=== PATIENT | male | born 1940 | race Caucasian/White ===

== ENCOUNTER 2022-11-15 14:00 | Observation (INO) | payer MEDICARE, MEDICAID, SELFPAY ==
[2022-11-06 14:38] VITALS: BMI 24.1
[2022-11-14] VITALS (9 sets, daily range): BP systolic 132–192; BP diastolic 60–96; PULSE 57–85; RESP 14–18; TEMP 36.1–36.6; O2SAT 91–98; BMI 24.1
--- NOTE | 2022-11-14 06:00 | DI.RAD.S_ITS ---
PROCEDURE: XR KNEE RT 1TO2V INDICATIONS: prosthesis placement TECHNIQUE: 2 view(s) of the knee acquired. COMPARISON: None. FINDINGS: Bones: Patient is status post knee joint arthroplasty. Hardware components are in expected positions. Visualized bony structures are intact. Soft tissues: Overlying postoperative changes are noted. IMPRESSION: Right total knee prosthesis in good position Approved by: Andrade Dubose M.D. on 11/14/2022 at 13:06
[2022-11-14] MEDS: LACTATED RINGERS 1,000 ML 42 ML IV ×2 (09:28→12:28)
[2022-11-14] MEDS: CELECOXIB 200 MG CAPSULE PO (09:29)
[2022-11-14] MEDS: ACETAMINOPHEN 325 MG TABLET 975 MG PO (09:29)
[2022-11-14] MEDS: PREGABALIN 75 MG CAPSULE PO (09:29)
[2022-11-14 09:35] LABS: COVID19 -Nasal RAPID Negative (Negative)
--- NOTE | 2022-11-14 10:17 | PM.PREOP ---
Pre-operative Note Interval Note History & Physical reviewed/Exam performed by Physician: Yes Changes to H&P: No
[2022-11-14] MEDS: CEFAZOLIN 2 GM/100 ML PREMIX 100 ML IV ×2 (10:48→18:22)
--- NOTE | 2022-11-14 11:24 | SUR.OPER ---
Supine on padded OR bed. Pillow under head, arms secured on padded armboards <90 degree abduction. Safety belt across torso. Non-operative leg secured with tape over blanket over lower leg. Operative leg secured in [employer] positioner.
[2022-11-14] MEDS: BUPIVACAINE LIPOSOME 266 MG/20 ML VIAL INJ (11:34)
[2022-11-14] MEDS: MORPHINE 4 MG/ML INJ INJ (11:35)
[2022-11-14] MEDS: TRANEXAMIC ACID 1,000 MG VIAL 1000 MG INJ ×2 (11:36→12:07)
[2022-11-14] MEDS: BUPIVACAINE 0.25% (PF) 60 ML, EPINEPHrine 0.3 MG INJ (11:40)
--- NOTE | 2022-11-14 12:18 | SUR.OPER ---
Patient left hearing aid remained in place to left ear. Upper and Lower dentures removed in OR and placed into green denture cup with patient label. And patients glasses placed into black glass case with patient label and brought with patient from OR to PACU.
--- NOTE | 2022-11-14 12:32 | P.OP_ITS ---
Operative Date/Time/Diagnoses Date of procedure: 11/14/22 Time of procedure: 12:32 Pre-op diagnosis: Right knee osteoarthritis Post-op diagnosis: same Procedure & Clinicians Procedure: Right total knee replacement Same procedure as scheduled: Yes Indications: The patient has had progressively worsening right knee pain with radiographic changes consistent with arthritis. Non-operative management has failed and the patient has requested total knee replacement. The risks, benefits and alternatives to surgery were discussed with the patient prior to proceeding. Risks discussed included, but were not limited to, failure to relieve pain, stiffness, infection, nerve damage, deep venous thrombosis, pulmonary embolism, stroke, coma, heart attack, permanent paralysis and , as well as the potential need for eventual revision of the prosthetic. Surgeon: Lyle Ayers Data Quality Consultant: Yogi Barkley Click Yes if Unassisted: No Anesthesia Type: Spinal, Sedation and Local Operative Notes Findings: Severe osteoarthritis of the medial compartment with moderate patellofemoral changes. Closure Type: primary Specimen(s): none sent Prosthetic devices, grafts, tissues, transplants, or devices: Implants used in this procedure were manufactured by the [employer] and included the BCS II Journey total knee replacement with a size 8 right cobalt chromium femur, 8 right non porous tibial base plate, 38 mm oval Estefanía II patella, and a 9 mm cross-linked polyethylene tibial insert. Applied: implant(s) Estimated Blood Loss (mL): 50 Blood products transfused: none Tourniquet time (min): 53 Procedure in detail: The patient was seen in the pre-operative area, where the patient identified the right knee as the operative site and this was marked with my initials. The patient received pre-operative antibiotics, and was taken to the operating room and placed on the operative table in the supine position. After satisfactory anesthesia, a time checker out was performed. The right leg was encircled with a tourniquet about the proximal thigh, and the leg was prepared from the toes to the tourniquet with ChloroPrep in the usual fashion and draped through sterile drapes. The leg was elevated and exsanguinated with Eschmark bandage and the tourniquet inflated to 250 mmHg pressure. The knee was approached through an approximately 18 cm incision centered over the patella and carried into the knee through a medial parapatellar arthrotomy. The anterior osteophytes and soft tissues were removed. The rotational landmarks of Jefferson's line and the transepicondylar axis were marked on the femur with electrocautery, and intramedullary guide holes for the femur and tibia were created. The distal femoral cut was made in 6 degrees of valgus using the intramedullary guide at the primary cut setting. The proximal tibial cut was then made using the intramedullary guide, taking 9 mm of bone off the less involved side. The extension gap was checked and the rotation of the femoral component confirmed with the gap balancing system. The anterior, posterior and chamfer cuts were then made. The posterior osteophytes and soft tissues were then removed. The posterior capsule was injected with part of a mixture of 60 ml 0.25% Marcaine mixed with 20 ml Exparel and 4 mg of morphine for post-operative pain control. The remainder of this mixture was injected into the capsule and subcutaneous tissues during cement curing. The tibia was prepared with the rotation set by an extra medullary guide. Trial tibial and femoral components were then placed and the intercondylar notch cut through the femoral trial. Range of motion was 0-140 degrees, with good stability throughout the range. The patella was then cut to accommodate the patellar prosthetic. There was no need for a lateral release. The trials were then removed, and the femoral hole plugged with a bone plug. The bone was prepared with pulsatile lavage, and dried with a sponge. Cement was applied and the final prosthetics placed. Excess cement was removed during and after cement curing. After confirming there was no extruded cement posteriorly, the final tibial insert was placed. The knee was copiously irrigated and the tourniquet deflated. Hemostasis was obtained. The capsule was closed with interrupted # 2 polyester suture. The subcutaneous layer was closed with 3-0 Vicryl, and the skin with a running 3-0 V-Lock suture and Dermabond. An Aquacel Ag dressing was applied and the patient was taken to recovery having tolerated the procedure well. The services of a skilled surgical attendant were required during this case to provide positioning, exposure and retraction to protect vital structures. Without the help of Mr. Barkley, the procedure could not have gone forward in a safe, expedient fashion. Complications: none Post-operative Condition: stable Disposition: PACU Plan for aftercare: The patient will be maintained on a standard total knee replacement protocol with weight bearing as tolerated. The patient will receive aspirin and sequential compression devices for DVT prophylaxis. The patient will be discharged home when safe for the home environment.
[2022-11-14] MEDS: OXYCODONE IR 5 MG TABLET PO (12:57)
[2022-11-14] MEDS: IBUPROFEN 400 MG TABLET PO ×3 (14:01→21:11)
[2022-11-14] MEDS: ACETAMINOPHEN 325 MG TABLET 650 MG PO ×2 (14:02→18:22)
--- NOTE | 2022-11-14 14:39 | PC.NURSE ---
Pt to room 206 via bed from PACU at 1330. Pt oriented to room, call light, bed controls, and tv controls. SCD's on and running. Bed alarm on for safety. Pt agrees to call for assistance as needed.
--- NOTE | 2022-11-14 16:00 | PT.IIE ---
Current Diagnoses Unilateral primary osteoarthritis, right knee (11/14/22) Surgery Performed Operation Date: 11/14/22 11:00 Actual Procedures p Total Knee Arthroplasty(Right) - Lyle Ayers MD Surgical History (Last Updated 02/15/22 @ 14:00 by Violeta Caballero, RN) History of prostate surgery History of stapedectomy History of surgery Hx of LASIK S/P CABG x 4 (~2011) S/P epidural steroid injection Medical History (Last Updated 02/15/22 @ 14:14 by Violeta Caballero RN) Anxiety Barretts esophagus BCC (basal cell carcinoma) (~2001) Diverticulitis Hearing impaired HLD (hyperlipidemia) HTN (hypertension) Kidney stones Neuropathy Osteoarthritis RLS (restless legs syndrome) Spinal stenosis Physical Therapy Inpatient Evaluation/Re-Eval M1 PT/OT-IP Prior Functional Status Start: 11/14/22 16:54 Freq: NEEDED Status: Active Protocol: Document 11/14/22 15:32 DCW (Rec: 11/14/22 17:24 DCW [id number]) Medical Review Prior Functional Status Communication WNL Mobility and Gait WNL, does not use assistive device at baseline Social History Household Members family,children Living Arrangements House Number of Stairs To Enter/Railing? 6, R ascending rail Additional Social History Comment Lives in a two-story home, but only uses first floor. M2 PT-IP Current Condition Start: 11/14/22 16:54 Freq: NEEDED Status: Active Protocol: Document 11/14/22 15:32 DCW (Rec: 11/14/22 17:24 DCW [id number]) Physical Therapy Current Condition Current Condition Evaluation Date 11/14/22 Treatment Diagnosis R TKA Onset Date 11/14/22 M3 PT-IP Subjective Start: 11/14/22 16:54 Freq: NEEDED Status: Active Protocol: Document 11/14/22 15:32 DCW (Rec: 11/14/22 17:24 DCW [id number]) Subjective Physical Therapy Visit Type Type Initial Evaluation Visit Start Time 15:32 Visit Stop Time 16:00 Total Visit Minutes 28 Notes Pt lying in bed when therapist entered room. Noted some pain , about a 5/10, but overall notes he is feeling pretty well. Agreeable to get up with PT at this time. Number of COST AND RISK ANALYSIS MANAGER Visits 0 Physical Therapy Visit Comments Patient Comments I'm already set up with PT somewhere [place] when I get out of here. Therapy Pain Assessment Location Right Knee Intensity 5 Scale Used Numeric (0 - 10) Description Aching M4 PT-IP Mobility and Gait Start: 11/14/22 16:54 Freq: NEEDED Status: Active Protocol: Document 11/14/22 15:32 DCW (Rec: 11/14/22 17:24 DCW [id number]) PT-Bed Mobility Assessment Supine to Sit Supine to Sit Independent Sit to Supine Sit to Supine Independent Scooting Scooting to Edge of Bed Independent Scooting Up and Down in Bed Independent PT-Transfer Assessment Sit to and From Stand Sit to and from Stand Standby Assistance Equipment Transfer Assistive Device Bed Rail,Gait Belt,Front Wheeled Walker Orthotic/Prosthetic Devices or Brace: No Comments Mobility Comments Pt able to perform bed mobility independently, SBA for sit<->stand from EOB, did well with use of tall FWW. Gait Assessment Gait Gait Assistance Required: Standby Assistance Distance (Feet) 450 Able to Maintain Weight Bearing Status Yes During Gait Assistive Devices Assistive Device Gait Belt,Front Wheeled Walker Orthotic/Prosthetic Devices or Brace: No Gait Deviations General Gait Pattern Antalgic,Decreased Stride Length,Flexed Trunk Factors Limiting Gait Function Factors Limiting Gait Function Decreased Activity Tolerance, Decreased Sensation,Pain Comments Gait Comments Pt ambulates with slight forward flexion, decreased step length with a moderate antalgic gait. Able to complete two full laps around nurses station for 450'. Stair Climbing Assessment Evaluation Level of Assist On Stairs Standby Assistance Devices Stair Climbing Assistive Devices Left Railing,Right Railing Technique/Endurance Stair Climbing Direction Ascend and Descend Stair Climbing Technique Step to Step Number of Steps Climbed 3 Query Text: Comments Stair Climbing Comments Pt ascended and descended three steps step-to gait pattern using bilateral railing SBA, therapist assist for IV line management. PT-Balance Assessment Sitting Balance and Reactions Static Sitting Balance Ability Normal Dynamic Sitting Balance Ability Normal Standing Balance and Reactions Static Standing Balance Ability Good Dynamic Standing Balance Ability Fair Device Used FWW M5 PT-IP Objective Assessments Start: 11/14/22 16:54 Freq: NEEDED Status: Active Protocol: Document 11/14/22 15:32 DCW (Rec: 11/14/22 17:24 DCW [id number]) Orientation Orientation/Cognition Level of Alertness Alert Orientation Name,Birthday,Month,Date,Year, Place,Situation Language Function Ability No Deficits Noted Safety Awareness Understands Safety Issues Memory Description No Deficits Noted Gross Range of Motion Lower Extremity ROM Assessment Right Impaired Impairments 7?-95? Strength Comments Strength Comments Able to lift leg against gravity to perform functional movements, good quad contraction M6 PT-IP Treatment Start: 11/14/22 16:54 Freq: NEEDED Status: Active Protocol: Document 11/14/22 15:32 DCW (Rec: 11/14/22 17:24 DCW [id number]) Physical Therapy Treatment Exercises Exercises Ankle Pumps,Quad Sets,Heel Slides,Straight Leg Raises Education Education Provided Weight Bearing Status,Post-Op Packet,Safety M7 PT-IP Assessment and Plan Start: 11/14/22 16:54 Freq: NEEDED Status: Active Protocol: Document 11/14/22 15:32 DCW (Rec: 11/14/22 17:24 DCW [id number]) PT Summary Assessment and Plan Potential Rehabilitation Potential Excellent Status of Condition at Evaluation Stable Summary Impairments Pain,ROM,Strength,Activity Tolerance Assessment Summary Pt doing incredibly well on [id number]. Pt able to perform independent bed mobility, all transfers SBA, no complaints of dizziness or imbalance. Noted some slight increase in soreness when first standing, but after starting walking, felt much better, and ended up ambulating throughout all 450' . Additionally able to demonstrate ability to ascend/ descend three stairs using bilateral railing. Performed post-op HEP, was able to demonstrate back afterward, pt was left with an HEP handout and post-op packet. Pt has shared living space with his son, good support at home. Pt will likely be safe to discharge home when medically cleared, may want to retest on stairs, specifically with only using a right ascending rail, which is what pt has at home to enter.. Goals Gait Goal Independent Gait Distance 600 Other Goals Ascending/descend 6 stairs with right ascending railing Days to Meet Goals 2 Frequency of Treatment Frequency Of Treatment Twice a Day Treatment Plan Physical Therapy Treatment Plan Gait Training,Therapeutic Exercise,Post Op Education, Discharge Planning Other Recommendations and Next Treatment Retry stairs with unilateral Focus railing, review HEP Weight Bearing Status Weight Bearing Status Weight Bear as Tolerated Recommendations To Nursing Amount of Assist Needed Standby Assistance Discharge Recommendations PT Discharge Recommendations Home,Outpatient PT Transportation Needs at Discharge Private Vehicle
[2022-11-14] MEDS: polyethylene glycoL 3350 17 GM POWD.PACK PO (18:28)
[2022-11-14] MEDS: DOCUSATE 100 MG CAPSULE PO (21:11)
[2022-11-14] MEDS: OXYCODONE IR 10 MG TABLET PO (21:11)
[2022-11-14] MEDS: ASPIRIN EC 81 MG TABLET PO (21:11)
[2022-11-14] MEDS: GABAPENTIN 600 MG TABLET PO (21:11)
[2022-11-15 02:12] VITALS: BP 129/70; PULSE 73; RESP 18; TEMP 36.6; O2SAT 94
[2022-11-15] MEDS: ACETAMINOPHEN 325 MG TABLET 650 MG PO ×3 (02:28→17:27)
[2022-11-15] MEDS: IBUPROFEN 400 MG TABLET PO ×5 (02:29→21:10)
[2022-11-15] MEDS: CEFAZOLIN 2 GM/100 ML PREMIX 100 ML IV (02:32)
[2022-11-15 06:13] LABS: Hematocrit 32.2 % (41-53); Hemoglobin 11.1 g/dL (13.5-17.5)
--- NOTE | 2022-11-15 06:42 | PM.DS.1 ---
History of Present Illness History of Present Illness Date Patient Seen: 11/15/22 Time Patient Seen: 06:43 Chief complaint: OPB Narrative: Operative Date/Time/Diagnoses Date of procedure: 11/14/22 Time of procedure: 12:32 Pre-op diagnosis: Right knee osteoarthritis Post-op diagnosis: same Procedure & Clinicians Procedure: Right total knee replacement Same procedure as scheduled: Yes Indications: The patient has had progressively worsening right knee pain with radiographic changes consistent with arthritis. Non-operative management has failed and the patient has requested total knee replacement. The risks, benefits and alternatives to surgery were discussed with the patient prior to proceeding. Risks discussed included, but were not limited to, failure to relieve pain, stiffness, infection, nerve damage, deep venous thrombosis, pulmonary embolism, stroke, coma, heart attack, permanent paralysis and , as well as the potential need for eventual revision of the prosthetic. Surgeon: Lyle Ayers Supervisor Print Line: Yogi Barkley Click Yes if Unassisted: No Anesthesia Type: Spinal, Sedation and Local Operative Notes Findings: Severe osteoarthritis of the medial compartment with moderate patellofemoral changes. Closure Type: primary Specimen(s): none sent Prosthetic devices, grafts, tissues, transplants, or devices: Implants used in this procedure were manufactured by the [employer] and included the BCS II Journey total knee replacement with a size 8 right cobalt chromium femur, 8 right non porous tibial base plate, 38 mm oval Estefanía II patella, and a 9 mm cross-linked polyethylene tibial insert. Applied: implant(s) Estimated Blood Loss (mL): 50 Blood products transfused: none Tourniquet time (min): 53 Discharge Providers Provider Discharge Date: 11/15/22 Primary care physician: Aylin Santiago MD Consults: 11/14/22 13:18 Consult to Discharge Planning Routine Comment: Consult to Physical Therapy Evaluate & Treat Comment: Physician Instructions: postop TKA protocol Discharge provider: Terri Lopez PA-C Summary Hospital Course Discharge Diagnosis: Right knee osteoarthritis, s/p right total knee arthroplasty Hospital Course: Mr Chris's hospital course was unremarkable. On POD# 1, he was feeling well and wanted to go home. He was eating and voiding without difficulty and his pain was well-controlled with oral medication. He was evaluated by PT and they felt he was safe to go home with standby assistance. Exam Vital Signs (past 8 hours): - 11/15/22 02:12 Temperature 97.9 F Pulse Rate 73 Respiratory Rate 18 Blood Pressure 129/70 Pulse Oximetry 94 Oxygen Flow Rate 0 Oxygen Delivery Method Room Air Oxygen Flow Rate 0 Narrative Exam Narrative: 5/5 strength in hip flexors, quadriceps, hamstrings, DF, PF, EHL on right. Sensation to light touch intact in RLE. Calves soft, compressible, nontender and without palpable cords or masses. Objective Labs 11/15/22 05:51 Labs: Laboratory Results - last 24 hr 11/14/22 11/15/22 09:17 05:51 Hgb 11.1 L Hct 32.2 L SARS-CoV-2 (PCR) Negative PFSH Medical History (Updated 02/15/22 @ 14:14 by Violeta Caballero RN) Anxiety Barretts esophagus BCC (basal cell carcinoma) (~2001) Diverticulitis Hearing impaired HLD (hyperlipidemia) HTN (hypertension) Kidney stones Neuropathy Osteoarthritis RLS (restless legs syndrome) Spinal stenosis Surgical History (Updated 02/15/22 @ 14:00 by Violeta Caballero RN) History of prostate surgery History of stapedectomy History of surgery Hx of LASIK S/P CABG x 4 (~2011) S/P epidural steroid injection Social History household members: family and children Smoking Status: Current some day smoker alcohol intake: current Discharge Assessment & Plan Assessment and Plan Assessment: Right knee osteoarthritis, s/p right total knee arthroplasty Plan of Treatment: Discharge home, multimodal pain control, ASA 81mg BID x 6 weeks for VTE prophylaxis, outpt PT, f/u in office in 2 weeks. Discharge Plan Discharge Plan Patient Disposition: Home Discharge orders & Medications Discharge Orders: Discharge (Order); Ordered 11/15/22 Ordered By: Terri Lopez Prescriptions: New oxycodone 5 mg Tablet 5 mg PO Q4-6H PRN (Reason: Pain, Moderate (4-6)) Qty: 60 0RF Rx Instructions: Do not take in combination with Valium. May take in combination w/ gabapentin. acetaminophen 325 mg Tablet 650 mg PO Q6H PRN (Reason: fever or pain) Qty: 240 0RF aspirin 81 mg Tablet,Delayed Release (Dr/Ec) 81 mg PO BID Qty: 90 0RF Continued gabapentin 600 mg Tablet 600 mg PO BEDTIME ibuprofen [Advil] 200 mg Tablet 200 mg PO DAILY PRN (Reason: Pain) diazepam [Valium] 10 mg Tablet 5 mg PO DAILY PRN (Reason: Anxiety) Follow up/Referrals: Aylin Santiago MD [Primary Care Provider] - Lyle Ayers MD [Physician] - As previously scheduled (Follow up w/ Isela Muniz PA-C, on 11/30/2022 @ 9:30 am at [facility] in [place].) Diet/Activity/Treatments Diet: Diet as Tolerated Activity: Walk frequently! Cold/Heat Therapy: Ice to knee as needed for pain. Skin/Wound/Dressing Care Report to your healthcare provider any signs of infection, such as:: chills, fever, night sweats, unusual drainage and unusual redness Dressing: May remove DAMI wrap and shower on 11/17/2022. Leave Aquacel dressing in place until follow up in office. No bathing or otherwise soaking incision. Call the office if the dressing becomes saturated inside. Visit Report/Discharge Packet Instructions: DI for Knee Replacement Stand Alone Forms: Patient Portal/API, Surgery Discharge Discharge Data Primary Care Provider: Aylin Santiago Attending Provider: Lyle Ayers Quality VTE Deep Vein Thrombosis/Pulmonary Embolism Present on Admission: No
[2022-11-15 09:00] VITALS: BP 137/73; PULSE 74; RESP 17; TEMP 36.4; O2SAT 94
[2022-11-15] MEDS: ASPIRIN EC 81 MG TABLET PO ×2 (09:32→21:09)
[2022-11-15] MEDS: DOCUSATE 100 MG CAPSULE PO ×2 (09:32→21:10)
[2022-11-15] MEDS: OXYCODONE IR 5 MG TABLET PO ×2 (09:32→17:25)
--- NOTE | 2022-11-15 09:52 | PC.NURSE ---
Addendum entered by Roxanne Ruby R.N. 11/15/22 19:20: Earlier in the afternoon, patient went to the bathroom and got back to bed. He had a moment where he was not talking and almost had a syncopal episode. Layed back down and blood pressure low. Patient fine shortly after. He got up to the chair with physical therapy and blood pressure 89/50s. He has been doing well since. Dressing to r.knee changed and he has had some bleeding to the bandage. Yogi Barkley, up to see the patient and he is aware. Patient given oxcodone and is alseep now. Original Note: Assess- Patient is alert and oriented x4, his dressing to his r.knee with an aquacel that is bleeding. Will change this after ortho takes a peak at the dressing. Given oxycodone for pain and patient is comfortable. Resting now.
--- NOTE | 2022-11-15 11:54 | PT-IP ANOTE ---
Attempted to see pt x3 this AM, hold per RN d/t pts dressing bloody and waiting on ortho PA to assess. Pt did well w/ PT yesterday w/ ambulation and stairs. Not anticipating any other barriers to d/c. Will attempt to see pt again this PM.
--- NOTE | 2022-11-15 13:57 | PT.IPTN ---
Current Diagnoses Unilateral primary osteoarthritis, right knee (11/14/22) Surgery Performed Operation Date: 11/14/22 11:00 Actual Procedures p Total Knee Arthroplasty(Right) - Lyle Ayers MD Physical Therapy Treatment Note M2 PT-IP Current Condition Start: 11/14/22 16:54 Freq: NEEDED Status: Active Protocol: Document 11/14/22 15:32 DCW (Rec: 11/14/22 17:24 DCW [id number]) Physical Therapy Current Condition Current Condition Evaluation Date 11/14/22 Treatment Diagnosis R TKA Onset Date 11/14/22 M3 PT-IP Subjective Start: 11/14/22 16:54 Freq: NEEDED Status: Active Protocol: Document 11/15/22 13:37 KS (Rec: 11/15/22 14:24 KS [id number]) Subjective Physical Therapy Visit Type Type Treatment Note Visit Start Time 13:37 Visit Stop Time 13:57 Total Visit Minutes 20 Notes Pt in bed upon arrival, agreeable to work w/ PT. BP: 91/49 and then 89/42 both sitting - pt nauseous and dizzy. Number of DATA MODELING ARCHITECT Visits 1 Physical Therapy Visit Comments Patient Comments Reports dizziness/nausea when up earlier w/ nursing. M4 PT-IP Mobility and Gait Start: 11/14/22 16:54 Freq: NEEDED Status: Active Protocol: Document 11/15/22 13:37 KS (Rec: 11/15/22 14:24 KS [id number]) PT-Bed Mobility Assessment Supine to Sit Supine to Sit Independent Sit to Supine Sit to Supine Independent Scooting Scooting to Edge of Bed Independent Scooting Up and Down in Bed Independent PT-Transfer Assessment Sit to and From Stand Sit to and from Stand Standby Assistance Equipment Transfer Assistive Device Gait Belt,Front Wheeled Walker Orthotic/Prosthetic Devices or Brace: No Transfers Transfer Destination Chair Transfer Technique pt ambulated w/ FWW Transfer Ability Level of Assist Contact Guard Assistance,1 Person Assistance,Use of Upper Extremities Comments Mobility Comments Pt in bed upon arrival, agreeable to ambulate. Pt able to sup<>sit and scoot EOB independently. SBA for sit<> Stand w/ FWW. Pt reported nausea and dizziness when standing and was unable to remain standing for BP reading . After sitting, BP 91/49. Pt took seated rest break and then stood again and ambulated to the chair ~15 ft w/ FWW CGA per doctors request. Pt sat in chair and reported increased nausea, dizziness, and feeling hot/sweaty. BP taken again and . RN notified. Pt provided w/ ice water and left in chair w/ all needs in reach. Gait Assessment Gait Gait Assistance Required: Contact Guard Assist,1 Person Assist Distance (Feet) 15 Able to Maintain Weight Bearing Status Yes During Gait Assistive Devices Assistive Device Gait Belt,Front Wheeled Walker Orthotic/Prosthetic Devices or Brace: No Gait Deviations General Gait Pattern Antalgic,Decreased Stride Length,Flexed Trunk Factors Limiting Gait Function Factors Limiting Gait Function Decreased Activity Tolerance, Decreased Sensation,Pain Comments Gait Comments Ambulation distance limited by symptomatic low BP. Stair Climbing Assessment Comments Stair Climbing Comments Unable to assess d/t low BP. PT-Balance Assessment Sitting Balance and Reactions Static Sitting Balance Ability Normal Dynamic Sitting Balance Ability Normal Standing Balance and Reactions Static Standing Balance Ability Good Dynamic Standing Balance Ability Fair Device Used FWW M5 PT-IP Objective Assessments Start: 11/14/22 16:54 Freq: NEEDED Status: Active Protocol: Document 11/14/22 15:32 DCW (Rec: 11/14/22 17:24 DCW [id number]) Orientation Orientation/Cognition Level of Alertness Alert Orientation Name,Birthday,Month,Date,Year, Place,Situation Language Function Ability No Deficits Noted Safety Awareness Understands Safety Issues Memory Description No Deficits Noted Gross Range of Motion Lower Extremity ROM Assessment Right Impaired Impairments 7?-95? Strength Comments Strength Comments Able to lift leg against gravity to perform functional movements, good quad contraction M6 PT-IP Treatment Start: 11/14/22 16:54 Freq: NEEDED Status: Active Protocol: Document 11/15/22 13:37 KS (Rec: 11/15/22 14:24 KS [id number]) Physical Therapy Treatment Education Education Provided Weight Bearing Status,Post-Op Packet,Safety M7 PT-IP Assessment and Plan Start: 11/14/22 16:54 Freq: NEEDED Status: Active Protocol: Document 11/15/22 13:37 KS (Rec: 11/15/22 14:24 KS [id number]) PT Summary Assessment and Plan Potential Rehabilitation Potential Good Summary Impairments Pain,ROM,Strength,Activity Tolerance Progress Towards Goals Slow Progress due to Medical Issues Assessment Summary Unable to progress pt today due to low BP (89/42) while sitting w/ pt reporting dizziness, nausea, and sweating. Pt mobilizing really well however not currently safe to d/c home d/t orthstatic hypotension. RN and Dr. Franklin aware. RN agrees to tale pts BP while standing later this afternoon. Will check back tomorrow. Anticipate d/c home when medically stable. Goals Gait Goal Independent Gait Distance 600 Other Goals Ascending/descend 6 stairs with right ascending railing Days to Meet Goals 2 Frequency of Treatment Frequency Of Treatment Twice a Day Treatment Plan Physical Therapy Treatment Plan Gait Training,Therapeutic Exercise,Post Op Education, Discharge Planning Other Recommendations and Next Treatment Retry stairs with unilateral Focus railing, review HEP Weight Bearing Status Weight Bearing Status Weight Bear as Tolerated Recommendations To Nursing Amount of Assist Needed 1 Person Assist Discharge Recommendations PT Discharge Recommendations Home,Outpatient PT Transportation Needs at Discharge Private Vehicle
--- NOTE | 2022-11-15 14:29 | CM.DANOTE ---
Discharge Planning/Care Management CM Discharge Assessment Start: 11/15/22 14:23 Freq: Status: Active Protocol: Document 11/15/22 14:24 TRISTON (Rec: 11/15/22 14:29 TRISTON [id number]) Discharge Planning Assessment Assigned Room Service Food Service Attendant NATALIIA Montes DPOA/Assigned Designee Name Ritchie Chris (son) Contact Information [phone] Advance Directives? No History Provided By Patient,Medical Record Prior Living Arrangements House Household Members family,children Type of transporation used prior to Drives own vehicle admit Independent with ADL's Yes Is patient alert and oriented? Yes Patient/Family Preference OP PT Therapy Barriers to Discharge No Comment Patient is a typically indp 82 yo male, resident of [place], POD1 from: Total Knee Arthroplasty(Right) - Lyle Ayers MD Patient planned for return home w/family to assist and PT has cleared him for this plan . Outpatient PT. No CM needs identified at this time CM team will plan to follow closely in case any DC needs or concerns arise JW Discharge Plan Home Transportation Arrangement Family Referrals Initiated None needed
[2022-11-15 15:00] VITALS: BP 117/54; PULSE 79; RESP 17; TEMP 36.2; O2SAT 98
[2022-11-15 20:50] VITALS: BP 105/69; PULSE 77; RESP 18; O2SAT 94
[2022-11-15] MEDS: GABAPENTIN 600 MG TABLET PO (21:10)
[2022-11-15] MEDS: polyethylene glycoL 3350 17 GM POWD.PACK PO (21:21)
[2022-11-16] MEDS: IBUPROFEN 400 MG TABLET PO ×4 (01:12→13:15)
[2022-11-16] MEDS: ACETAMINOPHEN 325 MG TABLET 650 MG PO ×3 (01:12→13:15)
[2022-11-16] MEDS: OXYCODONE IR 10 MG TABLET PO ×3 (02:01→13:14)
[2022-11-16 08:00] VITALS: BP 135/69; PULSE 79; RESP 17; TEMP 36.5; O2SAT 91
[2022-11-16] MEDS: DOCUSATE 100 MG CAPSULE PO (08:17)
[2022-11-16] MEDS: ASPIRIN EC 81 MG TABLET PO (08:43)
--- NOTE | 2022-11-16 08:44 | P.PN_ITS ---
Subjective Subjective Interval history: Patient is awake lying in bed this morning complaining of pain and continued bleeding from his knee wound. States that his Aquacel was changed yesterday on pod 1 and it is already saturated with blood again. Patient states that it has been harder for him to walk to the bathroom today than previous days. He also notes that he had some low blood pressures yesterday but these have improved today. Patient notes that he has had troubles with constipation in the past and has not had a bowel movement since surgery (2 days). He is currently taking stool softener and laxative to prevent constipation. States he normally has a bowel movement once per day. Denies chest pain, shortness of breath, abdominal pain. Patient has longstanding neuropathy and states that his sensation distally fluctuates day-to-day. He is looking forward to going home today if possible, his son is available to pick him up at any time. Exam Vital Signs (past 8 hours): - 11/16/22 08:00 Temperature 97.7 F Pulse Rate 79 Respiratory Rate 17 Blood Pressure 135/69 Pulse Oximetry 91 Oxygen Flow Rate 0 Oxygen Delivery Method Room Air Oxygen Flow Rate 0 Narrative Exam Narrative: Pleasant 82-year-old male. Awake, alert, and oriented. Hard of hearing. Aquacel dressing completely saturated with blood. Once removed, there were 2 spots along the distal incision site that were oozing blood. Fulton were placed to reinforce the central to distal portion of the wound. New Aquacel dressing placed and he was rewrapped with Leobardo bandage. Strength intact to bilateral lower extremities. Numbness to distal lower extremities due to longstanding neuropathy. Bilateral calves soft, compressible, nontender with no palpable cords or masses. Abdomen is soft and nontender in all 4 quadrants. Objective Labs 11/15/22 05:51 [facility] Medical History Anxiety Barretts esophagus BCC (basal cell carcinoma) (~2001) Diverticulitis Hearing impaired HLD (hyperlipidemia) HTN (hypertension) Kidney stones Neuropathy Osteoarthritis RLS (restless legs syndrome) Spinal stenosis Surgical History History of prostate surgery History of stapedectomy History of surgery Hx of LASIK S/P CABG x 4 (~2011) S/P epidural steroid injection Social History household members: family and children Smoking Status: Current some day smoker alcohol intake: current Assessment & Plan Post-op Postoperative Procedures: Procedures Operation Date: 11/14/22 11:00 Actual Procedure Side Surgeon p Total Knee Arthroplasty Right Lyle Ayers MD Postoperative day: 2 Postoperative status: doing well Postoperative status narrative: Patient is doing well, postop day 2 following right total knee arthroplasty. Course has been complicated by brief hypotension and continued bleeding from the incision site with multiple dressing changes. Fulton placed today to reinforce central to distal wound and new dressing placed. Hypotension has resolved. Postoperative plan: routine post-op care Postoperative plan narrative: Plan to reassess wound and bandage today to ensure control of bleeding. If bleeding has stabilized inpatient is cleared by Physical therapy he may discharge to home today with his son. Quality VTE Deep Vein Thrombosis/Pulmonary Embolism Present on Admission: No
--- NOTE | 2022-11-16 10:55 | PT.IPTN ---
Current Diagnoses Unilateral primary osteoarthritis, right knee (11/15/22) Surgery Performed Operation Date: 11/14/22 11:00 Actual Procedures p Total Knee Arthroplasty(Right) - Lyle Ayers MD Physical Therapy Treatment Note M2 PT-IP Current Condition Start: 11/14/22 16:54 Freq: NEEDED Status: Active Protocol: Document 11/14/22 15:32 DCW (Rec: 11/14/22 17:24 DCW [id number]) Physical Therapy Current Condition Current Condition Evaluation Date 11/14/22 Treatment Diagnosis R TKA Onset Date 11/14/22 M3 PT-IP Subjective Start: 11/14/22 16:54 Freq: NEEDED Status: Active Protocol: Document 11/16/22 11:18 TS (Rec: 11/16/22 11:28 TS [id number]) Subjective Physical Therapy Visit Type Type Treatment Note Visit Start Time 10:55 Visit Stop Time 11:15 Total Visit Minutes 20 Physical Therapy Visit Comments Patient Comments Pt reports he had to have some mroe stapes put in to his surgical site. Has son to help him at home. Therapy Pain Assessment Pain When Pain Assessed During Mobility Pain Present Pain Present Pain Reported M4 PT-IP Mobility and Gait Start: 11/14/22 16:54 Freq: NEEDED Status: Active Protocol: Document 11/16/22 11:18 TS (Rec: 11/16/22 11:28 TS [id number]) PT-Bed Mobility Assessment Supine to Sit Supine to Sit Independent Sit to Supine Sit to Supine Independent Scooting Scooting to Edge of Bed Independent Scooting Up and Down in Bed Independent PT-Transfer Assessment Sit to and From Stand Sit to and from Stand Standby Assistance Equipment Transfer Assistive Device Gait Belt,Front Wheeled Walker Orthotic/Prosthetic Devices or Brace: No Comments Mobility Comments Supine to sit ind with nBUe support on bed, no handrails. Sit to stand w/FWW SBA with cues for R knee straight. Pt ambulated ~500' in hallway SBA with emerging step thru gait. Pt performed stairs x6 required cues for stair sequencing. PT ambulatd back to room, sit to supine ind. Pt was left in room with call light nearby and tray table. Gait Assessment Gait Gait Assistance Required: Standby Assistance,1 Person Assist Distance (Feet) 500 Able to Maintain Weight Bearing Status Yes During Gait Assistive Devices Assistive Device Gait Belt,Front Wheeled Walker Orthotic/Prosthetic Devices or Brace: No Gait Deviations General Gait Pattern Antalgic,Decreased Stride Length,Flexed Trunk Factors Limiting Gait Function Factors Limiting Gait Function Pain Comments Gait Comments See mobiltiy comments. Stair Climbing Assessment Evaluation Level of Assist On Stairs Standby Assistance Devices Stair Climbing Assistive Devices Left Railing,Right Railing Technique/Endurance Stair Climbing Direction Ascend and Descend Stair Climbing Technique Step to Step Number of Steps Climbed 3 Comments Stair Climbing Comments See mobility comments. PT-Balance Assessment Sitting Balance and Reactions Static Sitting Balance Ability Normal Dynamic Sitting Balance Ability Normal Standing Balance and Reactions Static Standing Balance Ability Good Dynamic Standing Balance Ability Good Device Used FWW M5 PT-IP Objective Assessments Start: 11/14/22 16:54 Freq: NEEDED Status: Active Protocol: Document 11/14/22 15:32 DCW (Rec: 11/14/22 17:24 DCW [id number]) Orientation Orientation/Cognition Level of Alertness Alert Orientation Name,Birthday,Month,Date,Year, Place,Situation Language Function Ability No Deficits Noted Safety Awareness Understands Safety Issues Memory Description No Deficits Noted Gross Range of Motion Lower Extremity ROM Assessment Right Impaired Impairments 7?-95? Strength Comments Strength Comments Able to lift leg against gravity to perform functional movements, good quad contraction M6 PT-IP Treatment Start: 11/14/22 16:54 Freq: NEEDED Status: Active Protocol: Document 11/16/22 11:18 TS (Rec: 11/16/22 11:28 TS [id number]) Physical Therapy Treatment Exercises Exercises Ankle Pumps,Quad Sets,Heel Slides,Straight Leg Raises Education Education Provided Weight Bearing Status,Post-Op Packet,Safety M7 PT-IP Assessment and Plan Start: 11/14/22 16:54 Freq: NEEDED Status: Active Protocol: Document 11/16/22 11:18 TS (Rec: 11/16/22 11:28 TS [id number]) PT Summary Assessment and Plan Potential Rehabilitation Potential Good Summary Impairments Pain,ROM,Strength,Activity Tolerance Progress Towards Goals Slow Progress due to Medical Issues Assessment Summary Pt progressed his ambulation distance to ~500' SBA this session. He is Ind for bed mobiltiy and SBA for sit to stands. Educated pt on no flexion past 90D of R knee, pt sat EOB with knee flexed at 90D. PT is recommending pt return home with assist from son. Goals Gait Goal Independent Gait Distance 600 Other Goals Ascending/descend 6 stairs with right ascending railing Days to Meet Goals 2 Frequency of Treatment Frequency Of Treatment Twice a Day Treatment Plan Physical Therapy Treatment Plan Gait Training,Therapeutic Exercise,Post Op Education, Discharge Planning Other Recommendations and Next Treatment Retry stairs with unilateral Focus railing, review HEP Weight Bearing Status Weight Bearing Status Weight Bear as Tolerated Discharge Recommendations PT Discharge Recommendations Home,Outpatient PT Transportation Needs at Discharge Private Vehicle
[2022-11-16 12:00] VITALS: BP 154/75; PULSE 82; RESP 17; TEMP 36.3; O2SAT 95
--- NOTE | 2022-11-16 14:07 | PC.NURSE ---
Pt is A&OX4, VSS, afebrile on RA. He is very [place] and wears hearing aids. This a.m. Aquacel has seep through bleeding with minimal amount of blood. PA at bedside evaluated and reinforced the incision site with gely at the bedside. Pt tolerated this well, and aquacel was replaced. noted bruising and swelling around the knee. Pt is able to get up with x1 SBA and FWW to the bathroom and works with PT. He is cleared for discharge this a.m. after PT. He is reminded not to bend his knee >90 deg. He verbalizes understanding of activity, site care, limitations, s/sx of complications or infection as well as medications and follow up appointment. He is escorted via w/ch to front entrance by the SOFTWARE TEST SPECIALIST at approximately 1345 with all of his belongings and his own FWW for discharge home in private vehicle with son.
== END 2022-11-16 13:45 | disposition home or self-care (01) ==
LOC: OR 16:11 → AC 16:11
PROVIDERS: Admitting Provider Orthopaedic Surgery; PCP Internal Medicine; Referring Provider Orthopaedic Surgery; Visit Provider Orthopaedic Surgery
PROC: 0SRC0JZ Replacement of Right Knee Joint with Synthetic Substitute, Open Approach (ICD-10-PCS; CPT 27447; principal; 2022-11-14 11:00)
DX: M17.11 Unilateral primary osteoarthritis, right knee (principal); J44.9 Chronic obstructive pulmonary disease, unspecified; I25.10 Atherosclerotic heart disease of native coronary artery without angina pectoris; Z95.1 Presence of aortocoronary bypass graft; Z20.822 Contact with and (suspected) exposure to COVID-19
CPT/HCPCS: 27447; 36415; 73560; 85014; 85018; 87635; 97110; 97161; 97530; C1776; C9803; G0378; C9290; J0171; J0690; J1100; J2250; J2270; J2405; J2704; J3010